=== PATIENT | female | born 2000 | race Two or more races ===

== ENCOUNTER 2019-01-11 16:05 | Emergency (ER) | payer OTHER ==
[~2019-01-11] VITALS: Ht 160 cm; Wt 71.2 kg
[2019-01-11] MEDS ORDERED: PRENATABS RX T1 EACH (16:14)
[2019-01-11] MEDS ORDERED: FOLIC ACID1 MG (16:14)
== END 2019-01-11 17:23 | disposition home or self-care (01) ==
LOC: ER 16:05
DX: K64.4 Residual hemorrhoidal skin tags (principal); K59.09 Other constipation

== ENCOUNTER → 2019-01-18 | Emergency (ER) | payer OTHER ==
[~2019-01-18] VITALS: Ht 160 cm; Wt 71.2 kg
[~2019-01-18] MED LIST: FOLIC ACID1 MG; PANADOL EXTRA500 MG; PRENATABS RX T1 EACH; ZITHROMAX500 MG PO
== END | disposition home or self-care (01) ==
LOC: ER 20:56
DX: J06.9 Acute upper respiratory infection, unspecified (principal)

== ENCOUNTER 2019-02-18 10:47 | Inpatient (IN) | payer OTHER ==
[~2019-02-18] VITALS: Ht 160 cm; Wt 3.2 kg
== END 2019-04-04 10:58 | disposition home or self-care (01) | DRG 788 ==
LOC: SURG 03-22 13:45 → OB/GYN 04-01 05:49 → LDR 04-01 05:49 → OB/GYN 04-01 19:25 → SURG 04-02 13:45 → OB/GYN 04-04 10:58
PROVIDERS: ADMIT Obstetrics & Gynecology
PROC: 10907ZC Drainage of Amniotic Fluid, Therapeutic from Products of Conception, Via Natural or Artificial Opening (ICD-10-PCS; 2019-04-01)
PROC: 3E0P7VZ Introduction of Hormone into Female Reproductive, Via Natural or Artificial Opening (ICD-10-PCS; 2019-04-01)
PROC: 3E033VJ Introduction of Other Hormone into Peripheral Vein, Percutaneous Approach (ICD-10-PCS; 2019-04-01)
PROC: 4A1HXCZ Monitoring of Products of Conception, Cardiac Rate, External Approach (ICD-10-PCS; 2019-04-01)
PROC: 10D00Z1 Extraction of Products of Conception, Low, Open Approach (ICD-10-PCS; principal; 2019-04-01 16:00)
DX: O82 Encounter for cesarean delivery without indication (principal); O61.0 Failed medical induction of labor; Z3A.40 40 weeks gestation of pregnancy; Z37.0 Single live birth